=== PATIENT | male | born 1955 | race Caucasian/White ===

== ENCOUNTER 2018-10-07 18:54 | Emergency (ER) | payer OTHER ==
[~2018-10-07] VITALS: Ht 182.9 cm; Wt 99.8 kg
[2018-10-07 19:00] VITALS: BP 128/79
--- NOTE | 2018-10-07 19:00 | NUR ---
PT TRIAGED AND SENT TO ER LOBBY
--- NOTE | 2018-10-07 19:30 | NUR ---
PT TAKEN TO BED 3
--- NOTE | 2018-10-07 19:37 | NUR ---
Dereck huang in [facility] - 10/07/18 at [address] Singh evaluating patient at bedside.
--- NOTE | 2018-10-07 20:00 | NUR ---
PATIENT PRESENT TO ER WITH LEFT ARM SWELLING WITH WARM TO TOUCH. PATIENT REPORTED SWELLING IS GETTING BIGGER. PAIN 2/10 TOLERABLE AT THIS TIME. NO PREVIOUS MEDICAL HX. PATIENT WENT TO HIS DOCTOR 3 DAYS AGO. HE RECEIVED KEFLEX 500MG AND HYDROXYZINE 25MG.
--- NOTE | 2018-10-07 20:36 | NUR ---
Dr. Singh evaluating patient at bedside.
[2018-10-07] MEDS ORDERED: VANCOMYCIN 1,000 MG in DEXTROSE 5% 250 ML IV ONE (20:40)
[2018-10-07] MEDS ORDERED: VANCOMYCIN 1,000 MG VIAL ONE (21:05)
[2018-10-07 21:27] LABS: BASOPHILS % (AUTO) 0.6 % (0.0-2.0); EOSINOPHILS # (AUTO) 0.2 K/uL (0-0.4); EOSINOPHILS % (AUTO) 2.9 % (0.0-4.0); HEMATOCRIT 44.6 % (36-52); HEMOGLOBIN 14.9 g/dL (12.0-18.0); LYMPHOCYTES # (AUTO) 2.4 K/uL (2.0-11.5); LYMPHOCYTES % (AUTO) 34.3 % (20.5-51.1); MEAN CORPUSCULAR HEMOGLOBIN 30 pg (27-31); MEAN CORPUSCULAR HGB CONC 34 g/dL (33-37); MEAN CORPUSCULAR VOLUME 89.4 fL (80-94); MONOCYTES # (AUTO) 0.6 K/uL (0.8-1.0); MONOCYTES % (AUTO) 8.9 % (1.7-9.3); NEUTROPHILS # (AUTO) 3.8 K/uL (1.8-7.7); NEUTROPHILS % (AUTO) 53.3 % (42.2-75.2); PLATELET COUNT (AUTO) 200 K/uL (140-450); RED BLOOD CELL COUNT(AUTO) 4.99 MIL/uL (4.20-6.10); RED CELL DISTRIBUTION WIDTH 12.2 % (11.6-13.7); WHITE BLOOD COUNT (AUTO) 7.1 K/uL (4.8-10.8)
[2018-10-07 21:28] LABS: ANION GAP 9.6 (8-16); POTASSIUM 3.6 mmol/L (3.5-5.1)
--- NOTE | 2018-10-07 22:55 | NUR ---
Patient discharged with v/s stable. Written and verbal after care instructions given and explained. Patient alert, oriented and verbalized understanding of instructions. Ambulatory with steady gait. All questions addressed prior to discharge. ID band removed. Patient advised to follow up with PMD. Rx of BACTRIM DS 800MG-160MG given. Patient educated on indication of medication including possible reaction and side effects. Opportunity to ask questions provided and answered.
[2018-10-07 23:21] VITALS: BP 117/78
--- NOTE | 2018-10-08 12:30 | NUR ---
Late entry. Confirmed with RN that Vancomycin IVPB ended at 2230.
== END 2018-10-07 22:55 | disposition home or self-care (01) ==
LOC: MED 18:54
DX: L03.114 Cellulitis of left upper limb (principal)
CPT/HCPCS: 36415; 80048; 85025; 87040; 96365; 99283; J3370; J7060

== ENCOUNTER 2018-10-09 13:09 | Emergency (ER) | payer OTHER ==
[~2018-10-09] VITALS: Ht 165.1 cm; Wt 95.3 kg
[2018-10-09 13:17] VITALS: BP 124/72
[2018-10-09] MEDS ORDERED: cefTRIAXone 1,000 MG in DEXT 5% MINI-BAG PLUS 50 ML IV ONE (13:30)
--- NOTE | 2018-10-09 13:38 | NUR ---
63 Y/O M CAME TO ED WITH C/O L ARM PAIN. L ARM FROM ELBOW TO WRIST EDEMTAOUS. AT ELBOW SMALL ABSESS. CAP REFILL <3. EXPERIENCING SYMPTOMS X 9 DAYS. WAS SEEM IN ED 3 DAYS AGO. ATB GIVEN BUT SYMPTOMS STILL PERSISTED. MD NOTIFIED. WILL CONTINUE TO MONITOR.
--- NOTE | 2018-10-09 13:45 | NUR ---
MD AT BESIDE. ASSESSED ABSESS AND POPPED IT, SERASANGIOUSNESS FLUID EXPELLED.
--- NOTE | 2018-10-09 13:53 | NUR ---
wound cleaned with saline---wet to dry dressing applied.
[2018-10-09 13:54] VITALS: BP 136/87
== END 2018-10-09 13:53 | disposition home or self-care (01) ==
LOC: MED 13:09
DX: L03.114 Cellulitis of left upper limb (principal); L02.414 Cutaneous abscess of left upper limb
CPT/HCPCS: 99283

== ENCOUNTER 2018-12-13 06:25 | Emergency (ER) | payer OTHER ==
[~2018-12-13] VITALS: Ht 165.1 cm; Wt 95.3 kg
[2018-12-13 06:30] VITALS: BP 128/68
--- NOTE | 2018-12-13 06:30 | NUR ---
PT TAKEN TO BED 7
--- NOTE | 2018-12-13 06:30 | NUR ---
PT PRESENTS TO ED WITH C/O RIGHT FOOT/ANKLE PAIN, 7/10 WITH AMBULATION. STATES WALKING WHEN FEELING FOOT/ANKLE POP. CMS INTAKE. NO DEFORMITIES NOTED. NO REDNESS OR BURISING. EDEMA ON LATERAL SIDE OF ANKLE. VSS. ER MD AWARE. POSITIONED IN BED FOR COMFORT. ER MD AWARE. CONTINUE TO MONITOR.
[2018-12-13] MEDS ORDERED: IBUPROFEN 600 MG TAB PO ONE (06:35)
--- NOTE | 2018-12-13 06:39 | NUR ---
X-Ray at bedside.
[2018-12-13 07:04] VITALS: BP 128/68
--- NOTE | 2018-12-13 07:05 | NUR ---
Patient discharged with v/s stable. Written and verbal after care instructions given and explained. Patient alert, oriented and verbalized understanding of instructions. Ambulatory with CANE. All questions addressed prior to discharge. ID band removed. Patient advised to follow up with PMD. Rx of NAPROXEN given. Patient educated on indication of medication including possible reaction and side effects. Opportunity to ask questions provided and answered.
== END 2018-12-13 07:05 | disposition home or self-care (01) ==
LOC: MED 06:25
DX: S93.401A Sprain of unspecified ligament of right ankle, initial encounter (principal); W22.8XXA Striking against or struck by other objects, initial encounter; Y93.89 Activity, other specified; Y92.89 Other specified places as the place of occurrence of the external cause; Y99.8 Other external cause status
CPT/HCPCS: 73610; 99283; Q0092

== ENCOUNTER 2019-06-25 18:41 | Emergency (ER) | payer OTHER ==
[~2019-06-25] VITALS: Ht 165.1 cm; Wt 74.4 kg
[2019-06-25 18:43] VITALS: BP 136/80
--- NOTE | 2019-06-25 18:49 | NUR ---
PT TO ER LOBBY WITH VS STABLE. PT ALERT AND AWAKE
--- NOTE | 2019-06-25 19:15 | NUR ---
PT TO BED 6 WITH STEADY GAIT
--- NOTE | 2019-06-25 19:19 | NUR ---
63 Y/O MALE BIB SELF C/O ACHING NECK PAIN X3 DAYS. PT DENIES TRAUMA. STATES INTERMITTENT BLURRED VISION AND DIZZINESS. IBURPROFEN TAKEN AT 0600 AND 1200 W/ NO RELIEF. RR EVEN AND UNLABORED. PT SITTING IN BED CALM AND PLEASANT. VSS MEDHX: HYPERLIPIDEMA
[2019-06-25] MEDS ORDERED: KETOROLAC 60 MG/2 ML VIAL IM ONE (20:45)
--- NOTE | 2019-06-25 21:05 | NUR ---
PT STATES SOME RELIEF OF PAIN AFTER TORADOL. STATES PAIN IS A 2/10 AT THIS TIME. PT SITTING IN CHAIR COMFORTABLY. VSS. WILL CONTINUE TO MONITOR.
[2019-06-25 21:19] VITALS: BP 136/83
--- NOTE | 2019-06-25 21:19 | NUR ---
Patient discharged with v/s stable. Written and verbal after care instructions given and explained. Patient alert, oriented and verbalized understanding of instructions. Ambulatory with steady gait. All questions addressed prior to discharge. ID band removed. Patient advised to follow up with PMD. Rx of ROBAXIN AND MOTRIN 800MG given. Patient educated on indication of medication including possible reaction and side effects. Opportunity to ask questions provided and answered.
== END 2019-06-25 21:19 | disposition home or self-care (01) ==
LOC: MED 18:41
DX: G44.209 Tension-type headache, unspecified, not intractable (principal); R03.0 Elevated blood-pressure reading, without diagnosis of hypertension; E78.5 Hyperlipidemia, unspecified; M54.9 Dorsalgia, unspecified
CPT/HCPCS: 96372; 99283; J1885

== ENCOUNTER 2021-02-15 06:04 | Emergency (ER) | payer OTHER ==
[~2021-02-15] VITALS: Ht 165.1 cm; Wt 90.7 kg
[2021-02-15 06:05] VITALS: BP 132/94
[2021-02-15] MEDS ORDERED: KETOROLAC 30 MG/ML VIAL IM ONE (06:45)
[2021-02-15] MEDS ORDERED: NAPR-54 PO (08:25)
[2021-02-15 09:14] VITALS: BP 132/94
== END 2021-02-15 09:14 | disposition home or self-care (01) ==
LOC: MED 06:04
DX: R07.89 Other chest pain (principal); M54.2 Cervicalgia; I10 Essential (primary) hypertension
CPT/HCPCS: 71045; 72040; 93005; 96372; 99284; J1885

== ENCOUNTER 2022-04-20 12:35 | Emergency (ER) | payer OTHER ==
[~2022-04-20] VITALS: Ht 165.1 cm; Wt 94.8 kg
[~2022-04-20 12:35] MED LIST: NAPR-54 PO
[2022-04-20 12:38] VITALS: BP 144/75
--- NOTE | 2022-04-20 14:15 | NUR ---
DR LAROSE AT BEDSIDE FOR EVAL
--- NOTE | 2022-04-20 14:19 | NUR ---
66 Y/O MALE BIB SELF C/O DIZZINESS AND SHELTON XYEARS, WITH INCREASED INCIDENCE IN THE PAST 4 MONTHS AND PAIN ON 04/19/22. PER PT ROOM IS SPINNING AROUND HIM AND HE FEELS THOUGH HE IS HAVING SUDDEN "CRAMPING" IN HIS HEAD THAT MAKES HIM DIZZY. TOOK IBUPROFEN FOR PAIN WITH MODERATE EFFECT. STATES THAT HIS PCP PRESCRIBED UNKNOWN MEDICINE FOR DIZZINESS WITH NO EFFECT. PT IS SPEAKING IN FULL SENTENCES, NO SLURRING, AMBULATES WITH STEADY GAIT NKA PMH: HTN, HDL
[2022-04-20] MEDS ORDERED: KETOROLAC 60 MG/2 ML VIAL IM ONE (14:20)
[2022-04-20] MEDS ORDERED: MECL-303 PO ×2 (14:26→15:56)
[2022-04-20] MEDS ORDERED: IBUP-2213 PO ×2 (14:26→15:56)
[2022-04-20] MEDS ORDERED: NAPR-54 PO (15:56)
[2022-04-20 15:57] VITALS: BP 127/74
--- NOTE | 2022-04-20 15:57 | NUR ---
Patient discharged with v/s stable. Written and verbal after care instructions given and explained. Patient alert, oriented and verbalized understanding of instructions. Ambulatory with steady gait. All questions addressed prior to discharge. ID band removed. Patient advised to follow up with PMD. Rx of MOTRIN, ANTIVERT given. Patient educated on indication of medication including possible reaction and side effects. Opportunity to ask questions provided and answered.
== END 2022-04-20 15:57 | disposition home or self-care (01) ==
LOC: MED 12:35
DX: R51.9 Headache, unspecified (principal); H81.399 Other peripheral vertigo, unspecified ear; I10 Essential (primary) hypertension; Z79.899 Other long term (current) drug therapy; Z98.890 Other specified postprocedural states
CPT/HCPCS: 70450; 96372; 99284; J1885

== ENCOUNTER 2022-08-27 08:16 | Emergency (ER) | payer OTHER ==
[~2022-08-27] VITALS: Ht 165.1 cm; Wt 106.6 kg
[~2022-08-27 08:16] MED LIST changes: +IBUP-2213 PO; +MECL-303 PO
[2022-08-27 08:25] VITALS: BP 136/77
--- NOTE | 2022-08-27 08:28 | NUR ---
PT AMBULATED TO LOBBY
--- NOTE | 2022-08-27 08:30 | NUR ---
66/M WALKED IN C/O LEFT SHOULDER PAIN ONSET 5 DAYS THAT GOT WORSE. DENIES FALL OR INJURY. PT REPORTS PAIN CONSTANT 8/10 ACHING PAIN. REPORTS TAKING IBUPROFEN WITH NO RELIEF. AAO4, AMBULATORY, VITALS STABLE, NO ACUTE DISTRESS NOTED PMH: DENIES
--- NOTE | 2022-08-27 09:42 | NUR ---
PT AMBULATED TO ER BED 4
--- NOTE | 2022-08-27 09:48 | NUR ---
Pt bibs for L shoulder pain for days. Pain with movement. Pt has full rom with discomfort. Pt denies trauma. PT a/o x 4, vss, no ss of acute distress, breathing equal and unlabored, speech clear, in gown in bed, on monitor. Pt awaiting MD.
[2022-08-27] MEDS ORDERED: ACET-10509 PO (10:16)
[2022-08-27] MEDS ORDERED: KETOROLAC 60 MG/2 ML VIAL IM ONE (10:20)
--- NOTE | 2022-08-27 10:36 | NUR ---
saw pt and gave order for dc after medication. ACI given and reviewed with pt. Pt verbalized understanding and will follow up with primary. Pt a/o x 4, vss, no ss of acute distress, breathing equal and unlabored, speech clear, steady gait witnessed, pt monitored after medication. Pt aware of px and where to pick up man px (stating pharmacy has already called him).
[2022-08-27 10:39] VITALS: BP 126/76
== END 2022-08-27 10:33 | disposition home or self-care (01) ==
LOC: MED 08:30
DX: S49.92XA Unspecified injury of left shoulder and upper arm, initial encounter (principal); I10 Essential (primary) hypertension; E66.9 Obesity, unspecified; Z68.1 Body mass index [BMI] 19.9 or less, adult; X58.XXXA Exposure to other specified factors, initial encounter; Y93.89 Activity, other specified; Y92.89 Other specified places as the place of occurrence of the external cause; Y99.8 Other external cause status
CPT/HCPCS: 96372; 99283; J1885

== ENCOUNTER 2023-10-17 17:30 | Emergency (ER) | payer OTHER ==
[~2023-10-17] VITALS: Ht 165.1 cm; Wt 95.3 kg
[~2023-10-17 17:30] MED LIST changes: +ACET-10509 PO
[2023-10-17 17:43] VITALS: BP 126/70; PULSE 58; RESP 18; TEMP 98.4; O2SAT 98
[2023-10-17 18:01] VITALS: O2SAT 98
[2023-10-17] MEDS: KETOROLAC 60 MG/2 ML VIAL IM ONE (18:20)
[2023-10-17] MEDS ORDERED: ACET-503 PO (18:21)
== END 2023-10-17 18:30 | disposition home or self-care (01) ==
LOC: MED 17:30
DX: M54.50 Low back pain, unspecified (principal); I10 Essential (primary) hypertension; Z79.899 Other long term (current) drug therapy
CPT/HCPCS: 81002; 96372; 99283; J1885

== ENCOUNTER 2023-11-11 17:55 | Inpatient (IN) | payer OTHER ==
[~2023-11-11] VITALS: Ht 165.1 cm; Wt 79.8 kg
[~2023-11-11 17:55] MED LIST changes: +ACET-503 PO; +NAPR-337 PO; -NAPR-54 PO
[2023-11-11 18:06] VITALS: BP 104/65; PULSE 58; RESP 16; TEMP 98.1; O2SAT 97
[2023-11-11 18:39] LABS: BASOPHILS # (AUTO) 0.1 K/uL (0.00-0.22); EOSINOPHILS # (AUTO) 0.1 K/uL (0-0.4); EOSINOPHILS % (AUTO) 2.5 % (0.0-4.0); HEMATOCRIT 39.5 % (36-52); LYMPHOCYTES # (AUTO) 1.4 K/uL (2.0-11.5); LYMPHOCYTES % (AUTO) 28.5 % (20.5-51.1); MEAN CORPUSCULAR HEMOGLOBIN 31 pg (27-31); MEAN CORPUSCULAR HGB CONC 35 g/dL (33-37); MEAN CORPUSCULAR VOLUME 87.9 fL (80-94); MONOCYTES # (AUTO) 0.4 K/uL (0.8-1.0); MONOCYTES % (AUTO) 8.4 % (1.7-9.3); NEUTROPHILS % (AUTO) 59.6 % (42.2-75.2); PLATELET COUNT (AUTO) 153 K/uL (140-450); RED BLOOD CELL COUNT(AUTO) 4.49 MIL/uL (4.20-6.10); RED CELL DISTRIBUTION WIDTH 12.2 % (11.6-13.7)
[2023-11-11 18:47] LABS: ANION GAP 11.3 (8-16); CALCIUM 8.5 mg/dL (8.5-10.1); CARBON DIOXIDE 27.5 mmol/L (21-32); POTASSIUM 3.8 mmol/L (3.5-5.1)
[2023-11-11] MEDS: KETOROLAC 30 MG/ML VIAL IM ONE (19:02)
[2023-11-11] MEDS: ASPIRIN 81 MG TAB.CHEW PO ONE (20:24)
[2023-11-11] MEDS: NITROGLYCERIN 0.4 MG TAB SL ONE (20:36)
[2023-11-11] MEDS ORDERED: MORPHINE SULFATE 2 MG/ML SYR IVP PRN (20:40)
[2023-11-11] MEDS ORDERED: HYDROcodone/APAP 5/325 MG 1 TAB TAB PO PRN (20:40)
[2023-11-11] MEDS ORDERED: ONDANSETRON 4 MG/2 ML VIAL IVP PRN (20:40)
[2023-11-11] MEDS ORDERED: ACETAMINOPHEN 325 MG TAB PO PRN (20:40)
[2023-11-11] MEDS ORDERED: ALBUTEROL SULFATE/IPRATROPIU 3 ML SOL IH PRN (20:45)
[2023-11-11] MEDS ORDERED: SIMVASTATIN 20 MG TAB PO SCH (21:00)
[2023-11-11] MEDS: METOPROLOL 25 MG TAB PO SCH (21:28)
[2023-11-11] MEDS: ATORVASTATIN 20 MG TAB PO SCH (21:28)
[2023-11-11 21:35] VITALS: BP 126/72; PULSE 84; RESP 18; TEMP 97.6; O2SAT 98
[2023-11-12] VITALS (9 sets, daily range): BP systolic 106–125; BP diastolic 50–69; PULSE 44–59; RESP 18–20; TEMP 97.8–98.3; O2SAT 96–100
[2023-11-12 06:56] LABS: BASOPHILS % (AUTO) 0.8 % (0.0-2.0); EOSINOPHILS # (AUTO) 0.3 K/uL (0-0.4); EOSINOPHILS % (AUTO) 4.9 % (0.0-4.0); HEMATOCRIT 40.1 % (36-52); HEMOGLOBIN 14.1 g/dL (12.0-18.0); LYMPHOCYTES # (AUTO) 1.8 K/uL (2.0-11.5); LYMPHOCYTES % (AUTO) 34.5 % (20.5-51.1); MEAN CORPUSCULAR HEMOGLOBIN 32 pg (27-31); MEAN CORPUSCULAR HGB CONC 35 g/dL (33-37); MEAN CORPUSCULAR VOLUME 89.1 fL (80-94); MONOCYTES # (AUTO) 0.6 K/uL (0.8-1.0); MONOCYTES % (AUTO) 10.9 % (1.7-9.3); NEUTROPHILS # (AUTO) 2.5 K/uL (1.8-7.7); NEUTROPHILS % (AUTO) 48.9 % (42.2-75.2); PLATELET COUNT (AUTO) 142 K/uL (140-450); RED CELL DISTRIBUTION WIDTH 12.7 % (11.6-13.7); WHITE BLOOD COUNT (AUTO) 5.1 K/uL (4.8-10.8)
[2023-11-12 07:08] LABS: ANION GAP 8.4 (8-16); CALCIUM 8.1 mg/dL (8.5-10.1); CARBON DIOXIDE 30.3 mmol/L (21-32); POTASSIUM 3.7 mmol/L (3.5-5.1)
[2023-11-12] MEDS: ASPIRIN 81 MG TAB.CHEW PO SCH (09:10)
[2023-11-13] VITALS (7 sets, daily range): BP systolic 105–119; BP diastolic 60–67; PULSE 45–55; RESP 16–18; TEMP 97.1–98.1; O2SAT 95–97
[2023-11-13 07:00] LABS: ANION GAP 13.2 (8-16); CALCIUM 8.5 mg/dL (8.5-10.1); CARBON DIOXIDE 27.6 mmol/L (21-32); CREATININE 0.9 mg/dL (0.6-1.3); POTASSIUM 3.8 mmol/L (3.5-5.1)
[2023-11-13 07:01] LABS: BASOPHILS % (AUTO) 0.4 % (0.0-2.0); EOSINOPHILS # (AUTO) 0.3 K/uL (0-0.4); EOSINOPHILS % (AUTO) 4.8 % (0.0-4.0); HEMATOCRIT 41.4 % (36-52); HEMOGLOBIN 14.5 g/dL (12.0-18.0); LYMPHOCYTES # (AUTO) 1.6 K/uL (2.0-11.5); LYMPHOCYTES % (AUTO) 27.4 % (20.5-51.1); MEAN CORPUSCULAR HEMOGLOBIN 31 pg (27-31); MEAN CORPUSCULAR HGB CONC 35 g/dL (33-37); MEAN CORPUSCULAR VOLUME 88.5 fL (80-94); MONOCYTES # (AUTO) 0.5 K/uL (0.8-1.0); MONOCYTES % (AUTO) 9.2 % (1.7-9.3); NEUTROPHILS # (AUTO) 3.5 K/uL (1.8-7.7); NEUTROPHILS % (AUTO) 58.2 % (42.2-75.2); PLATELET COUNT (AUTO) 151 K/uL (140-450); RED BLOOD CELL COUNT(AUTO) 4.68 MIL/uL (4.20-6.10); RED CELL DISTRIBUTION WIDTH 12.6 % (11.6-13.7)
[2023-11-13] MEDS ORDERED: ASPI81CT95 PO (16:33)
== END 2023-11-13 17:33 | disposition home or self-care (01) | DRG 206 ==
LOC: MED 17:55 → MTU 20:42
PROVIDERS: ADMIT Family Medicine; ATTEND Family Medicine
DX: M94.0 Chondrocostal junction syndrome [Tietze] (principal); I16.0 Hypertensive urgency; I10 Essential (primary) hypertension; Z79.899 Other long term (current) drug therapy
CPT/HCPCS: 36415; 71045; 80048; 84484; 85025; 85379; 87081; 93005; 96372; 99285; J1885